=== PATIENT | male | born 1965 | race Caucasian/White ===

== ENCOUNTER 2024-12-23 16:18 | Emergency (ER) | payer BC, MEDICARE ==
[~2024-12-23] VITALS: Ht 193 cm; Wt 151.2 kg
[~2024-12-23 16:18] MED LIST: GLIP-126 PO; LISI-230 PO
[2024-12-23 16:21] VITALS: TEMP 97.3
--- NOTE | 2024-12-23 17:15 | Physician Documentation ---
History of Present Illness ~ Chief Complaint: Leg Laceration Stated Complaint: LAC ON LEG, BLOOD THINNERS Time Seen by MD: 17:02 Primary Medical Doctor: no PMD at this time Source: patient Mode of Arrival: Dropped Off Exam Limitations: no limitations HPI Patient presented to laceration to the right leg. He was putting food away and a jar fell. He sustained a laceration to his right camp. History of CVA, hypertension, diabetes. All untreated. He has not been to the doctor in over a year and a half. Unknown when last tetanus shot was. Found to have significant hypertension incidentally. Tetanus Within 5 Years: No Medication Reconciliation Allergies: Coded Allergies: No Known Drug Allergies (Verified Allergy, Unknown, 12/23/24) Scheduled Glipizide (Glipizide), 5 MG PO q day Lisinopril (Lisinopril), 1 TAB PO DAILY Lisinopril/Hydrochlorothiazide 10-12.5 Mg* (Lisinopril-Hctz 10-12.5 Mg*), 1 EACH PO DAILY Past Medical History Past Medical History: CVA/TIA/Stroke, Hypertension, Diabetes Past Surgical History: noncontributory, orthopedic surgeries Alcohol Use: Occasionally Drug Use: none Occupation: employed Review of Systems Constitutional: Denies: chills, fever Eyes: Reports: other (pt states he has poor vision, chronic) ENT: Reports: no symptoms reported Respiratory: Reports: no symptoms reported; Denies: shortness of breath, SOB with exertion, SOB at rest Cardiovascular: Reports: edema; Denies: chest pain, left arm pain, diaphoresis, lightheadedness, syncope Physical Exam Vital Signs: Temperature: 97.3, Source: Oral, Heart Rate: 104, Respiratory Rate: 16, BP: 219/131, Pulse Oximetry: 96, Weight: 151.200 Oxygen Flow Rate: 0 Pulse Oximetry Reflects: adequate oxygenation Physical Exam General: Awake, alert, oriented. No apparent distress Neck: Supple. Normal range of motion. No JVD Respiratory: Lungs are clear to auscultation bilaterally. No respiratory distress. Chest: Normal shape and size. No accessory muscle use. Cardiovascular: Regular rate and rhythm. S1-S2. No murmur, gallop, rub. Extremities: +1 LE edema, no cyanosis or clubbing. Neurologic: Alert and oriented x4. Nonfocal. Speech is clear. Moving all extremities. Psychiatric: Normal mood and affect. Skin: Normal color. Warm and dry. 1.5 cm laceration to the right camp. Procedures Laceration/Wound Repair Laceration : Location: right anterior lower leg. Length (cm): 1.5 Anesthesia: Lidocaine w/ Epi Prep: irrigated by nurse, scrubbed Undermining: none Foreign Body: not identified Repaired: skin Wound Repaired With: sutures Suture Size/Type: 4-0 Number of Superficial Sutures: 2 Layer Closure?: No Dressing Applied: simple Splint Applied?: No Tolerated Procedure Well?: yes, no complications Procedure Note Verbal consent obtain. Simple sutures applied. Patient tolerated well. 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 (Apresoline Inj.) (12/23/24 19:45) Medications Received in ER Medications (Trade) Dose Ordered Sig/Lorrie Route PRN Reason Start Time Stop Time Status Last Admin Dose Admin (Trandate tablet) 100 mg ONCE STAT PO 12/23/24 17:15 12/23/24 17:17 DC 12/23/24 17:37 100 MG (Boostrix vaccine syringe) 0.5 ml ONCE ONCE IMVAC 12/23/24 17:25 12/23/24 17:26 DC 12/23/24 17:38 0.5 ML (Apresoline inj.) 10 mg ONCE ONCE IV 12/23/24 19:45 12/23/24 19:46 DC 12/23/24 20:17 10 MG Vital Signs 12/23/24 12/23/24 12/23/24 12/23/24 16:21 16:41 20:17 20:28 Temp 97.3 Pulse 104 91 93 Resp 18 16 16 B/P (MAP) 219/131 188/119 (142) Pulse Ox 96 96 O2 Flow Rate 0 0 12/23/24 21:18 Pulse 103 Resp 18 B/P (MAP) 218/124 (155) Pulse Ox 98 O2 Flow Rate 0 Laboratory Tests Test 12/23/24 18:06 White Blood Count 7.8 Red Blood Count 5.23 Hemoglobin 14.7 Hematocrit 43.8 Mean Corpuscular Volume 83.8 Mean Corpuscular Hemoglobin 28.1 Mean Corpuscular Hemoglobin Concent 33.5 Red Cell Distribution Width 14.1 Platelet Count 203 Mean Platelet Volume 8.2 Neutrophils (%) (Auto) 75.0 Lymphocytes (%) (Auto) 17.1 L Monocytes (%) (Auto) 6.8 Eosinophils (%) (Auto) 0.8 Basophils (%) (Auto) 0.3 Neutrophils # (Auto) 5.8 Lymphocytes # (Auto) 1.3 Monocytes # (Auto) 0.5 Eosinophils # (Auto) 0.1 Basophils # (Auto) 0.0 CBC Comment Sodium Level 140 Potassium Level 4.0 Chloride Level 106 Carbon Dioxide Level 24.6 Anion Gap 9 Blood Urea Nitrogen 16 Creatinine 1.02 Estimated GFR/1.73 m2 74 BUN/Creatinine Ratio 15.7 Glucose Level 197 H Calcium Level 8.1 L Albumin 3.5 Chemistry Comments Medical Decision Making Findings Patient presented secondary to laceration to Leg. Has past medical history significant for hypertension, CVA, diabetes. All untreated. Currently only taking a baby aspirin per day. Has not seen a doctor in a year and a half. Incidentally, he was found to have significant hypertension. Treated with labetalol and then hydralazine with no significant improvement. He has no headache. Or any other complaints. No dizziness, lightheadedness or syncope. No chest pain or pressure. No shortness a breath. Laboratory evaluation is without evidence of end-organ dysfunction. Given his history of CVA and therefore high-risk recommended for admission. Patient declined admission. On re-eval he was tearful. Refused admission despite education. Risks of untreated tolerated hypertension was reviewed. He verbalized understanding. States that he will follow up with his doctor next week. He was given a prescription for lisinopril. Encouraged to follow closely with his primary care provider. Education provided on home blood pressure monitoring. His laceration was less than 2 cm. It was successfully closed. There was no evidence of fracture, dislocation. No foreign body. Education provided on suture removal. Education provided on wound care. Departure Time of Disposition: 20:52 Disposition: 07 LEFT AGAINST MEDICAL ADVICE Admitted to Inpatient Unit: to hospitalist Impression: Primary Impression: Laceration Additional Impression: Hypertension, Accelerated Condition: Guarded Discharge Instructions: Hypertension, Adult, [id number], Laceration Care, Adult Additional Instructions: Suture removal in 10-14 days. You may return here or go to your primary care provider. May also go to an urgent care clinic. Keep wound clean and dry. May shower after 24 hours. Do not tub bath (do not submerge in water) Your blood pressure in the emergency department was significantly elevated. Highly recommend that you follow up with your primary care provider. I will give you a prescription for lisinopril which you stated you have taken in the past. Recommend that repeat labs be obtained in approximately one month to check kidney function and potassium levels when taking lisinopril. Furthermore, you will also need up titration of her antihypertensive therapy. Recommend home blood pressure monitoring. Please return for new or worsening symptoms. Referrals: NO PRIMARY CARE PROVIDER (PCP) Prescriptions Lisinopril (LISINOPRIL) 10 Mg Tablet 1 TAB PO DAILY for 30 Days, #30 TAB 0 Refills Prov: ALYCE VAZQUEZ NP 12/23/24 Education Educated: Patient Educated regarding: diagnosis, treatment, prognosis, need for follow up Signature Scribe Signature: No scribe Attestation: The note accurately reflects work and decisions made by me.Alyce Vazquez - ZOHREH 12/23/24 23:38 This note was created with the assistance of voice recognition software whereby errors in grammar, syntax, and/or spelling may have occurred despite active proofreading efforts by the author. Please do not hesitate to contact the provider for clarification or for questions regarding the content of this document. ALYCE VAZQUEZ NP Dec 23, 2024 17:15
[2024-12-23] MEDS: LIDOcaine 1% W/epiNEPHrine 1:100,000 20ml vial IJ ONE (17:38)
[2024-12-23] MEDS: TETanus/Pertussis (Acell)/Diphther VAC/PF (Tdap-Adult) 0.5ml syringe IMVAC ONE (17:38)
[2024-12-23 18:31] LABS: MEAN PLATELET VOLUME 8.2 FL (7.4-10.4); RED CELL DISTRIBUTION WIDTH 14.1 % (11.5-14.5)
[2024-12-23 18:42] LABS: CREATININE 1.02 MG/DL (0.60-1.10); TOTAL CARBON DIOXIDE 24.6 MMOL/L (24-32); eCRCL 93 ML/MIN; eGFR 74 ML/MIN
[2024-12-23] MEDS: hydrALAZINE 20mg/ml inj. IV ONE (20:17)
[2024-12-23] MEDS ORDERED: LISI10TA27 PO (21:14)
[2024-12-23 23:29] VITALS: BP 218/124; PULSE 103; RESP 18; O2SAT 98
== END 2024-12-23 21:37 | disposition left against medical advice (07) ==
LOC: ER 16:19
DX: S81.811A Laceration without foreign body, right lower leg, initial encounter (principal); I10 Essential (primary) hypertension; E11.9 Type 2 diabetes mellitus without complications; Z86.73 Personal history of transient ischemic attack (TIA), and cerebral infarction without residual deficits; Z79.899 Other long term (current) drug therapy; Z98.890 Other specified postprocedural states; Z72.89 Other problems related to lifestyle; W18.39XA Other fall on same level, initial encounter; Y93.89 Activity, other specified; Y92.89 Other specified places as the place of occurrence of the external cause; Y99.8 Other external cause status
CPT/HCPCS: 12001; 36415; 80048; 85025; 90715; 96374; 99284; A6258; A6449; G0008; J0360; Z7610; 90471